=== PATIENT | male | born 2000 | race Caucasian/White ===

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

== ENCOUNTER → 2023-03-30 08:40 | Outpatient (CLI) | payer BC, SELFPAY ==
--- NOTE | ~2023-03-30 | US_ITS ---
EXAMINATION: US abdomen complete DATE: 03/30/2023 09:09 INDICATION: Infectious mononucleosis. TECHNIQUE: Multiple grayscale and Doppler ultrasound images of the abdomen were obtained. COMPARISON: Ultrasound 05/11/2019 FINDINGS: The visualized portions of the head, body, and tail of the pancreas are normal. The liver i s normal without focal lesion. There is normal flow in main portal vein. The gallbladder is normal in size. No gallstones or gallbladder wall thickening. There was no sonographic Alberts sign. Abdominal aorta is normal in caliber. Inferior vena cava is normal. The kidneys are normal in size. The spleen is mildly enlarged and measures 13.6 cm. IMPRESSION: 1. Mild splenomegaly. Reviewed, dictated and finalized at location E. R AND EVAPORATOR OPERATOR IMPRESSION: 1. Mild splenomegaly.
== END ==
PROVIDERS: PCP Family Medicine; Visit Provider Nurse Practitioner Adult Health
DX: B27.90 Infectious mononucleosis, unspecified without complication (principal); R16.1 Splenomegaly, not elsewhere classified
CPT/HCPCS: 76700

== ENCOUNTER → 2023-05-12 08:16 | Outpatient (CLI) | payer OTHER, SELFPAY ==
--- NOTE | ~2023-05-12 | US_ITS ---
EXAMINATION: US abdomen complete DATE: 05/12/2023 08:37 INDICATION: Splenomegaly not elsewhere classified TECHNIQUE: Multiple grayscale and Doppler ultrasound images of the abdomen were obtained. COMPARISON: 03/30/2023 FINDINGS: The head and body of the pancreas are normal. The pancreatic tail is obscured by bowel gas. The liver is normal with normal echogenicity and echotexture. No surface nodularity. Normal hepatope nidhi flow in the main portal vein. The gallbladder is normal with no abnormal wall thickening, pericho lecystic fluid or stones. The normal common bile duct measures 4 mm. There was no sonographic Alberts sign. The visualized portions of the aorta and inferior vena cava are normal. The spleen is normal in appearance and measures 11.9 cm., Previously 13.6 cm The right kidney measure s 9.8 x 5.9 x 4.1 cm. The left kidney measures 11.9 x 5.5 x 5.5 cm. The kidneys demonstrate normal pa renchymal echogenicity. There is no hydronephrosis. IMPRESSION: 1. Unremarkable abdominal ultrasound. No persistent splenomegaly. Reviewed, dictated and finalized at location L. [employer]
== END ==
PROVIDERS: PCP Nurse Practitioner Adult Health; Visit Provider Nurse Practitioner Adult Health
DX: R16.1 Splenomegaly, not elsewhere classified (principal)
CPT/HCPCS: 76700